=== PATIENT | male | born 1955 | race Caucasian/White ===

== ENCOUNTER → 2019-04-01 | Day surgery (SDC) | payer OTHER ==
[2019-03-29 16:15] LABS: BASOPHILS # (AUTO) 0.1 (0.0-0.1); EOSINOPHILS # (AUTO) 0.8 (0.0-0.4); EOSINOPHILS % 8.4 % (0.0-6.0); HEMATOCRIT 40.6 % (38.2-49.6); HEMOGLOBIN 13.7 g/dL (14.0-18.0); LYMPHOCYTES # (AUTO) 1.7 (1.0-3.2); LYMPHOCYTES % 17.1 % (18.0-39.1); MEAN CORPUSCULAR HEMOGLOBIN 30.4 pg (28-32); MEAN CORPUSCULAR HGB CONC 33.7 g/dL (31-35); MONOCYTES # (AUTO) 0.6 (0.2-0.8); MONOCYTES % 6.5 % (4.4-11.3); NEUTROPHILS # (AUTO) 6.5 (2.1-6.9); NEUTROPHILS % 66.3 % (38.7-80.0); PLATELET COUNT 184 x10e3/uL (140-360); RED BLOOD COUNT 4.51 x10e6/uL (4.3-5.7); RED CELL DISTRIBUTION WIDTH 12.1 % (11.7-14.4)
[2019-03-29 16:26] LABS: INR 1.12; PROTHROMBIN TIME 14.9 seconds (11.9-14.5)
[2019-03-29 16:28] LABS: PARTIAL THROMBOPLASTIN TIME 60.9 seconds (23.8-35.5)
--- NOTE | 2019-03-29 16:28 | Diagnostic Imaging Report ---
Chest, PA and lateral. History: Preoperative evaluation for foot surgery. Comparison: None available. Discussion: The heart is within normal limits of size. Patient is status post median sternotomy. The mediastinal and hilar contours are unremarkable. No focal consolidation, sizable pleural effusion, or pneumothorax. No acute osseous abnormalities. IMPRESSION: No radiographic evidence of acute cardiopulmonary abnormality. Signed by: Vini Anderson MD on 03/29/2019 4:25 PM
[2019-03-29 16:34] LABS: ANION GAP 15.3 mmol/L (8-16); CALCIUM 9.2 mg/dL (8.4-10.2); CREATININE, SERUM 2.36 mg/dL (0.72-1.25); POTASSIUM 4.3 mmol/L (3.5-5.1)
[~2019-04-01] MED LIST: BUPIVACAINE HCL 0.5% INJ 30 ML VIAL INJ ONE; CARVEDILOL12.5 MG PO; CEFAZOLIN SOD 1 GM/NS 50ML 50 ML IV ONE; DEXAMETHASONE SOD PHOS INJ 4 MG/ML VIAL ONE; DILTIAZEM PO; FENTANYL CITRATE/PF 100MCG/2 ML INJ ONE; HUMALOG100 UNIT/1 SC; INSULIN REGULAR, HUMAN 100 UNIT/1 ML 3ML VIAL ONE; INTEGRA PLUS C1 EACH PO; LANTUS 3ML100 UNITS/ SC; MIDAZOLAM HCL 2 MG/2 ML VIAL ONE; VELTASSA8.4 GM PEG; VITAMIN D PO; Z.0.ASPIRIN CHEW81 M; Z.0.COLACE100 MG; Z.0.CRESTOR20 MG PO; Z.0.FLOMAX0.4 MG; Z.0.KLOR-CON M2020 M PO; Z.0.LASIX40 MG PO; Z.0.PANTOPRAZOLE SO4 PO; Z.0.PRADAXA150 MG PO; Z.0.SOTALOL80 MG PO; [UNRECOGNIZED DRUG - OTHER] PO; [UNRECOGNIZED DRUG - OTHER] PO
--- OUTSIDE RECORDS SUMMARY | 2019-04-01 05:38 | XMS REPORT ---
Author Author [facility] Address Unknown Phone Unavailable Care Team Providers Care Rn Labor Delivery Name Role Phone Ramona SALDIVAR Unavailable Unavailable Problems This patient has no known problems. Allergies, Adverse Reactions, Alerts This patient has no known allergies or adverse reactions. Medications This patient has no known medications. Results Test Description Test Time Test Comments Text Results Atomic Results Result Comments CHEST 2 VIEWS 2019-03-29 16:24:00 [facility] [address] [address] Patient Name: TANNA BEE MR #: [id number] : 1955 Age/Sex: 63/M Req #: [id number] Adm Physician: Ordered by: JATINDER SALDIVAR DPM Report #: [id number] Location: OR Room/Bed: Procedure: [id number] DX/CHEST 2 VIEWS Exam Date: Exam Time: REPORT STATUS: Signed Chest, PA and lateral. History: Preoperative evaluation for foot surgery. Comparison: None available. Discussion: The heart is within normal limits of size. Patient is status post median sternotomy. The mediastinal and hilar contours are unremarkable. No focal consolidation, sizable pleural effusion, or pneumothorax. No acute osseous abnormalities. IMPRESSION: No radiographic evidence of acute cardiopulmonary abnormality. Signed by: Vini Hooker MD on 03/29/2019 4:25 PM Dictated By: VINI HOOKER MD 24 Transcribed By: ALLEGRA on 03/29/191624 COPY TO: JATINDER SALDIVAR DPM
[2019-04-01 07:45] VITALS: BP 132/66
--- NOTE | 2019-04-01 11:24 | Operative Report ---
DATE OF PROCEDURE: 04/01/2019 SURGEON: Allyssa Barreto DPM PREOPERATIVE DIAGNOSIS: Right 2nd digit amputation. POSTOPERATIVE DIAGNOSIS: Right 2nd digit amputation. PLANNED PROCEDURE: Right partial 2nd digit amputation. AUTOMOTIVE METALSMITH: None. ANESTHESIA: General with a postoperative block consisting of 6 mL of 0.5% Marcaine plain. ESTIMATED BLOOD LOSS: Less than 10 mL. PATHOLOGY: Middle and distal phalanx of the right 2nd digit for gross specimen, wound culture. MATERIALS: 4-0 Prolene. PROCEDURE NOTE: The patient was seen in the preoperative waiting room, where the correct procedure and site was identified. The patient was brought to the operating room and placed on the operating table in the supine position. General anesthesia was initiated. At this time, a well-padded pneumatic tourniquet was placed about the patient's right ankle; however, it was never inflated. The right foot and ankle were scrubbed, prepped and draped in the usual aseptic manner. Attention was directed to the distal aspect of the patient's right 2nd digit where a deep probing ulceration with purulent drainage was noted to the distal tip of the patient's right 2nd digit. Utilizing a fishmouth incision at the level of proximal phalangeal joint with #15 blade, the case was started. Incision was carried down directly to the level of bone. The incision was carried down to the level of proximal interphalangeal joint where the distal tip of the digit was grasped distally and disarticulated at the level of the proximal interphalangeal joint. Next, utilizing a double-action bone cutter, the head of the proximal phalanx was resected and passed off to the back table. The wound was then copiously irrigated with sterile saline. Next, the wound was prepped for closure by removing all dog-ears and debulking fat. Utilizing 4-0 Prolene simple interrupted sutures, the wound edges were reapproximated. The incision site was then dressed with Adaptic, 4x4s, Kerlix, Terence wrap, and a postop shoe. The patient tolerated the procedure and anesthesia well. The patient was transferred to the postoperative recovery room with vital signs stable and vascular status intact. The patient was monitored there for a short period of time before being sent home with the following written and oral instructions: 1. Keep the dressing clean, dry, and intact. 2. The patient is to remain partial heel touch weightbearing to the right lower extremity to avoid any ambulation until being seen in the office. 3. The patient was given the office number and instructed to contact us if any problems arise. DAYLIN Pretty/CASSANDRA /[id number]
== END | disposition home or self-care (01) ==
LOC: OR 05:35
PROVIDERS: ATTEND Podiatrist Foot & Ankle Surgery
DX: M86.071 Acute hematogenous osteomyelitis, right ankle and foot (principal); Z01.810 Encounter for preprocedural cardiovascular examination; Z01.812 Encounter for preprocedural laboratory examination; Z01.811 Encounter for preprocedural respiratory examination; E11.9 Type 2 diabetes mellitus without complications; I10 Essential (primary) hypertension; I25.10 Atherosclerotic heart disease of native coronary artery without angina pectoris; Z95.1 Presence of aortocoronary bypass graft; I48.91 Unspecified atrial fibrillation; N18.9 Chronic kidney disease, unspecified
CPT/HCPCS: 28820; 36415 ×2; 71046; 80048; 82948; 85025; 85610; 85730; 88305; 88311; 93005; J0690; J1817; J2250; J3010; 88304; J1100

== ENCOUNTER 2021-04-18 11:47 | Inpatient (IN) | payer MEDICARE, OTHER ==
[~2021-04-18] VITALS: Ht 182.9 cm; Wt 99.8 kg
[~2021-04-18 11:47] MED LIST changes: -BUPIVACAINE HCL 0.5% INJ 30 ML VIAL INJ ONE; -CEFAZOLIN SOD 1 GM/NS 50ML 50 ML IV ONE; -DEXAMETHASONE SOD PHOS INJ 4 MG/ML VIAL ONE; -FENTANYL CITRATE/PF 100MCG/2 ML INJ ONE; -INSULIN REGULAR, HUMAN 100 UNIT/1 ML 3ML VIAL ONE; -MIDAZOLAM HCL 2 MG/2 ML VIAL ONE
[2021-04-18] MEDS ORDERED: Vancomycin IV 1 GM in SODIUM CHLORIDE 0.9% 250ML 250 ML IV ONE (12:30)
[2021-04-18 12:52] LABS: BASOPHILS % 0.4 % (0.0-1.0); EOSINOPHILS # (AUTO) 0.2 (0.0-0.4); HEMOGLOBIN 11.7 g/dL (14.0-18.0); LYMPHOCYTES # (AUTO) 0.8 (1.0-3.2); LYMPHOCYTES % 7.5 % (18.0-39.1); MEAN CORPUSCULAR HEMOGLOBIN 29.4 pg (28-32); MEAN CORPUSCULAR HGB CONC 31.6 g/dL (31-35); MONOCYTES # (AUTO) 0.8 (0.2-0.8); MONOCYTES % 7.4 % (4.4-11.3); NEUTROPHILS # (AUTO) 9.3 (2.1-6.9); NEUTROPHILS % 82.3 % (38.7-80.0); PLATELET COUNT 161 x10e3/uL (140-360); RED BLOOD COUNT 3.98 x10e6/uL (4.3-5.7); RED CELL DISTRIBUTION WIDTH 12.5 % (11.7-14.4)
[2021-04-18 13:12] LABS: ALBUMIN 3.4 g/dL (3.5-5.0); ANION GAP 13.7 mmol/L (8-16); CALCIUM 8.6 mg/dL (8.4-10.2); CREATININE, SERUM 2.9 mg/dL (0.72-1.25); POTASSIUM 4.7 mmol/L (3.5-5.1)
[2021-04-18] MEDS ORDERED: ACETAMINOPHEN 325 MG TAB PO PRN (14:15)
[2021-04-18] MEDS ORDERED: DOCUSATE SODIUM 100 MG CAP PO PRN (14:15)
[2021-04-18] MEDS ORDERED: ALBUTEROL/IPRATROPIUM 3 ML NEB NEB PRN (14:15)
[2021-04-18] MEDS ORDERED: HYDROCODONE/APAP 5MG-325MG TAB PO PRN (14:15)
[2021-04-18] MEDS ORDERED: BENZONATATE 100 MG CAP PO PRN (14:15)
[2021-04-18] MEDS ORDERED: SIMETHICONE 80 MG CHEW PO PRN (14:15)
[2021-04-18] MEDS ORDERED: DIPHENHYDRAMINE HCL 25 MG CAP PO PRN (14:15)
[2021-04-18] MEDS ORDERED: HYDRALAZINE HCL 20 MG/ML VIAL IV PRN (14:15)
[2021-04-18] MEDS ORDERED: LIDOCAINE 4% PATCH TP PRN (14:15)
[2021-04-18] MEDS ORDERED: POTASSIUM CHLORIDE 20 MEQ TAB CR PO PRN (14:15)
[2021-04-18] MEDS ORDERED: DEXTROSE 50% SYRINGE 50 ML IV PRN ×3 (14:15→15:00)
[2021-04-18] MEDS ORDERED: ELIQUIS2.5 MG PO (14:58)
[2021-04-18] MEDS ORDERED: JARDIANCE25 MG (14:58)
[2021-04-18] MEDS ORDERED: LANTUS 3ML100 UNITS/ SQ (14:59)
[2021-04-18 15:05] VITALS: BP 142/106
[2021-04-18 15:06] VITALS: BP 142/106
[2021-04-18] MEDS: INSULIN LISPRO 100 UNIT/1 ML 3ML VIAL SQ SCH ×2 (15:18→21:00)
[2021-04-18] MEDS: SODIUM CHLORIDE 0.9% 1000ML 1,000 ML IV SCH (15:24)
[2021-04-18] MEDS: Vancomycin IV 1 GM in SODIUM CHLORIDE 0.9% 250ML 250 ML IV SCH (16:41)
[2021-04-18] MEDS: ENOXAPARIN SOD INJ 40 MG/0.4 ML SYR SC SCH (16:41)
[2021-04-18 17:51] VITALS: BP 142/56
[2021-04-18 20:46] VITALS: BP 141/75
[2021-04-18] MEDS ORDERED: MELATONIN 5 MG TABLET PO PRN (21:00)
[2021-04-18 21:30] VITALS: BP 141/75
[2021-04-19] VITALS (8 sets, daily range): BP systolic 137–153; BP diastolic 58–88
[2021-04-19] MEDS: SODIUM CHLORIDE 0.9% 1000ML 1,000 ML IV SCH ×3 (02:02→21:20)
[2021-04-19] MEDS: INSULIN LISPRO 100 UNIT/1 ML 3ML VIAL SQ SCH ×4 (07:30→21:20)
[2021-04-19 07:35] LABS: BASOPHILS # (AUTO) 0.1 (0.0-0.1); BASOPHILS % 0.7 % (0.0-1.0); EOSINOPHILS # (AUTO) 0.3 (0.0-0.4); EOSINOPHILS % 3.1 % (0.0-6.0); HEMATOCRIT 35.3 % (38.2-49.6); HEMOGLOBIN 11.6 g/dL (14.0-18.0); LYMPHOCYTES # (AUTO) 0.9 (1.0-3.2); LYMPHOCYTES % 10.5 % (18.0-39.1); MEAN CORPUSCULAR HEMOGLOBIN 30.1 pg (28-32); MEAN CORPUSCULAR HGB CONC 32.9 g/dL (31-35); MEAN CORPUSCULAR VOLUME 91.5 fL (81-99); MONOCYTES # (AUTO) 0.8 (0.2-0.8); MONOCYTES % 9.3 % (4.4-11.3); NEUTROPHILS # (AUTO) 6.8 (2.1-6.9); NEUTROPHILS % 75.7 % (38.7-80.0); PLATELET COUNT 175 x10e3/uL (140-360); RED BLOOD COUNT 3.86 x10e6/uL (4.3-5.7); RED CELL DISTRIBUTION WIDTH 12.4 % (11.7-14.4)
[2021-04-19 07:53] LABS: ANION GAP 15.1 mmol/L (8-16); CALCIUM 8.3 mg/dL (8.4-10.2); CHOL/HDL RATIO 3.1 (3.9-4.7); CREATININE, SERUM 2.33 mg/dL (0.72-1.25); PHOSPHORUS 3.3 MG/DL (2.3-4.7); POTASSIUM 5.1 mmol/L (3.5-5.1)
[2021-04-19] MEDS: Vancomycin IV 1 GM in SODIUM CHLORIDE 0.9% 250ML 250 ML IV SCH (08:10)
[2021-04-19] MEDS: PANTOPRAZOLE SOD 40 MG TABEC PO SCH (08:10)
[2021-04-19 08:16] LABS: THYROID STIMULATING HORMONE 0.782 uIU/mL (0.350-4.940)
[2021-04-19] MEDS ORDERED: Vancomycin IV 1 GM in SODIUM CHLORIDE 0.9% 250ML 250 ML IV SCH (09:00)
[2021-04-19] MEDS ORDERED: CEFTRIAXONE 1 GM in SODIUM CHLORIDE 0.9% 50ML 50 ML IV SCH (09:00)
[2021-04-19] MEDS: ASPIRIN 81 MG ENTERIC COATED PO SCH (11:20)
[2021-04-19] MEDS: CEFTRIAXONE 1 GM in SODIUM CHLORIDE 0.9% 50ML 50 ML IV SCH (13:00)
[2021-04-19] MEDS: ONDANSETRON HCL INJ 2MG/ML 2ML 2 MG/ML VIAL IV PRN (16:30)
[2021-04-19] MEDS: CARVEDILOL 12.5 MG TAB PO SCH (17:00)
[2021-04-19] MEDS: ENOXAPARIN SOD INJ 40 MG/0.4 ML SYR SC SCH (18:36)
[2021-04-19] MEDS: CRESTOR 10MG PO SCH (21:18)
[2021-04-20] VITALS (7 sets, daily range): BP systolic 125–162; BP diastolic 51–69
[2021-04-20 05:05] LABS: BASOPHILS % 0.5 % (0.0-1.0); EOSINOPHILS # (AUTO) 0.3 (0.0-0.4); EOSINOPHILS % 3.7 % (0.0-6.0); HEMATOCRIT 34.1 % (38.2-49.6); HEMOGLOBIN 10.8 g/dL (14.0-18.0); LYMPHOCYTES # (AUTO) 1.2 (1.0-3.2); LYMPHOCYTES % 14.9 % (18.0-39.1); MEAN CORPUSCULAR HEMOGLOBIN 29.5 pg (28-32); MEAN CORPUSCULAR HGB CONC 31.7 g/dL (31-35); MEAN CORPUSCULAR VOLUME 93.2 fL (81-99); MONOCYTES # (AUTO) 0.8 (0.2-0.8); NEUTROPHILS # (AUTO) 5.7 (2.1-6.9); NEUTROPHILS % 70.4 % (38.7-80.0); PLATELET COUNT 156 x10e3/uL (140-360); RED BLOOD COUNT 3.66 x10e6/uL (4.3-5.7); RED CELL DISTRIBUTION WIDTH 12.4 % (11.7-14.4)
[2021-04-20 05:26] LABS: ALBUMIN 2.9 g/dL (3.5-5.0); ANION GAP 14.6 mmol/L (8-16); CALCIUM 8.1 mg/dL (8.4-10.2); CREATININE, SERUM 2.28 mg/dL (0.72-1.25); POTASSIUM 4.6 mmol/L (3.5-5.1)
[2021-04-20] MEDS: SODIUM CHLORIDE 0.9% 1000ML 1,000 ML IV SCH ×3 (06:36→21:00)
[2021-04-20] MEDS: INSULIN LISPRO 100 UNIT/1 ML 3ML VIAL SQ SCH ×4 (07:30→21:21)
[2021-04-20] MEDS: PANTOPRAZOLE SOD 40 MG TABEC PO SCH (09:09)
[2021-04-20] MEDS: ASPIRIN 81 MG ENTERIC COATED PO SCH (09:09)
[2021-04-20] MEDS: Vancomycin IV 1 GM in SODIUM CHLORIDE 0.9% 250ML 250 ML IV SCH (09:09)
[2021-04-20] MEDS: CARVEDILOL 12.5 MG TAB PO SCH ×2 (09:10→16:39)
[2021-04-20] MEDS: ONDANSETRON HCL INJ 2MG/ML 2ML 2 MG/ML VIAL IV PRN (09:26)
[2021-04-20] MEDS: CEFTRIAXONE 1 GM in SODIUM CHLORIDE 0.9% 50ML 50 ML IV SCH (13:19)
[2021-04-20] MEDS: ENOXAPARIN SOD INJ 40 MG/0.4 ML SYR SC SCH (16:39)
[2021-04-20] MEDS: CRESTOR 10MG PO SCH (21:20)
[2021-04-21] VITALS (9 sets, daily range): BP systolic 121–155; BP diastolic 56–80
[2021-04-21] MEDS: SODIUM CHLORIDE 0.9% 1000ML 1,000 ML IV SCH ×3 (04:54→23:15)
[2021-04-21 06:13] LABS: BASOPHILS % 0.5 % (0.0-1.0); EOSINOPHILS # (AUTO) 0.3 (0.0-0.4); HEMATOCRIT 34.4 % (38.2-49.6); HEMOGLOBIN 10.7 g/dL (14.0-18.0); LYMPHOCYTES # (AUTO) 1.2 (1.0-3.2); LYMPHOCYTES % 15.2 % (18.0-39.1); MEAN CORPUSCULAR HEMOGLOBIN 29.6 pg (28-32); MEAN CORPUSCULAR HGB CONC 31.1 g/dL (31-35); MONOCYTES # (AUTO) 0.7 (0.2-0.8); MONOCYTES % 8.8 % (4.4-11.3); NEUTROPHILS # (AUTO) 5.5 (2.1-6.9); NEUTROPHILS % 70.7 % (38.7-80.0); PLATELET COUNT 177 x10e3/uL (140-360); RED BLOOD COUNT 3.62 x10e6/uL (4.3-5.7); RED CELL DISTRIBUTION WIDTH 12.4 % (11.7-14.4)
[2021-04-21 06:34] LABS: ALBUMIN 2.8 g/dL (3.5-5.0); ALBUMIN/GLOBULIN RATIO 0.9 (0.8-2.0); ANION GAP 14.5 mmol/L (8-16); CALCIUM 8.6 mg/dL (8.4-10.2); CREATININE, SERUM 2.28 mg/dL (0.72-1.25); POTASSIUM 4.5 mmol/L (3.5-5.1)
[2021-04-21] MEDS: INSULIN LISPRO 100 UNIT/1 ML 3ML VIAL SQ SCH ×4 (07:30→21:47)
[2021-04-21] MEDS: PANTOPRAZOLE SOD 40 MG TABEC PO SCH (08:55)
[2021-04-21] MEDS: ASPIRIN 81 MG ENTERIC COATED PO SCH (08:55)
[2021-04-21] MEDS: CARVEDILOL 12.5 MG TAB PO SCH ×2 (08:56→17:09)
[2021-04-21] MEDS: Vancomycin IV 1 GM in SODIUM CHLORIDE 0.9% 250ML 250 ML IV SCH (08:56)
[2021-04-21] MEDS: ENOXAPARIN SOD INJ 40 MG/0.4 ML SYR SC SCH (17:09)
[2021-04-21] MEDS: CRESTOR 10MG PO SCH (20:41)
[2021-04-22] VITALS (7 sets, daily range): BP systolic 136–166; BP diastolic 62–93
[2021-04-22] MEDS: SODIUM CHLORIDE 0.9% 1000ML 1,000 ML IV SCH ×2 (03:28→19:15)
[2021-04-22 05:44] LABS: BASOPHILS # (AUTO) 0.1 (0.0-0.1); BASOPHILS % 0.7 % (0.0-1.0); EOSINOPHILS # (AUTO) 0.4 (0.0-0.4); EOSINOPHILS % 4.4 % (0.0-6.0); HEMATOCRIT 33.9 % (38.2-49.6); HEMOGLOBIN 11.1 g/dL (14.0-18.0); LYMPHOCYTES # (AUTO) 1.3 (1.0-3.2); LYMPHOCYTES % 14.6 % (18.0-39.1); MEAN CORPUSCULAR HEMOGLOBIN 29.5 pg (28-32); MEAN CORPUSCULAR HGB CONC 32.7 g/dL (31-35); MEAN CORPUSCULAR VOLUME 90.2 fL (81-99); MONOCYTES # (AUTO) 0.8 (0.2-0.8); MONOCYTES % 8.6 % (4.4-11.3); NEUTROPHILS # (AUTO) 6.3 (2.1-6.9); NEUTROPHILS % 70.7 % (38.7-80.0); PLATELET COUNT 199 x10e3/uL (140-360); RED BLOOD COUNT 3.76 x10e6/uL (4.3-5.7); RED CELL DISTRIBUTION WIDTH 12.1 % (11.7-14.4)
[2021-04-22 06:20] LABS: ANION GAP 12.3 mmol/L (8-16); CALCIUM 8.7 mg/dL (8.4-10.2); CREATININE, SERUM 1.82 mg/dL (0.72-1.25); POTASSIUM 4.3 mmol/L (3.5-5.1)
[2021-04-22] MEDS: PANTOPRAZOLE SOD 40 MG TABEC PO SCH (07:30)
[2021-04-22] MEDS: INSULIN LISPRO 100 UNIT/1 ML 3ML VIAL SQ SCH ×4 (07:30→21:05)
[2021-04-22] MEDS: CARVEDILOL 12.5 MG TAB PO SCH ×2 (09:00→17:38)
[2021-04-22] MEDS: ASPIRIN 81 MG ENTERIC COATED PO SCH (09:00)
[2021-04-22] MEDS: Vancomycin IV 1.25 GM in SODIUM CHLORIDE 0.9% 250ML 250 ML IV SCH (09:12)
[2021-04-22] MEDS ORDERED: BENZOCAINE 20% SPR 60 ML CAN ONE (12:05)
[2021-04-22] MEDS ORDERED: SODIUM CHLORIDE 0.9% 1000ML 1,000 ML ONE (12:05)
[2021-04-22] MEDS ORDERED: PROPOFOL IV EMULSION 10 MG/ML 20 ML VIAL ONE (12:16)
[2021-04-22] MEDS ORDERED: POVIDONE IODINE 0.05% 0.05 % ML PO ONE (12:16)
[2021-04-22] MEDS ORDERED: MIDAZOLAM HCL 2 MG/2 ML VIAL ONE (13:22)
[2021-04-22] MEDS: ENOXAPARIN SOD INJ 40 MG/0.4 ML SYR SC SCH (17:38)
[2021-04-22] MEDS: CRESTOR 10MG PO SCH (20:54)
[2021-04-23] VITALS (8 sets, daily range): BP systolic 148–167; BP diastolic 63–95
[2021-04-23] MEDS: SODIUM CHLORIDE 0.9% 1000ML 1,000 ML IV SCH (01:00)
[2021-04-23] MEDS: INSULIN LISPRO 100 UNIT/1 ML 3ML VIAL SQ SCH ×4 (07:30→20:33)
[2021-04-23] MEDS: ASPIRIN 81 MG ENTERIC COATED PO SCH (08:48)
[2021-04-23] MEDS: PANTOPRAZOLE SOD 40 MG TABEC PO SCH (08:48)
[2021-04-23] MEDS: CARVEDILOL 12.5 MG TAB PO SCH ×2 (08:49→16:52)
[2021-04-23] MEDS: Vancomycin IV 1.25 GM in SODIUM CHLORIDE 0.9% 250ML 250 ML IV SCH (08:54)
[2021-04-23] MEDS: ENOXAPARIN SOD INJ 40 MG/0.4 ML SYR SC SCH (16:52)
[2021-04-23] MEDS: CRESTOR 10MG PO SCH (20:32)
[2021-04-24] VITALS (9 sets, daily range): BP systolic 131–175; BP diastolic 66–83
[2021-04-24 06:20] LABS: BASOPHILS # (AUTO) 0.1 (0.0-0.1); BASOPHILS % 0.8 % (0.0-1.0); EOSINOPHILS # (AUTO) 0.4 (0.0-0.4); EOSINOPHILS % 4.9 % (0.0-6.0); HEMATOCRIT 34.9 % (38.2-49.6); HEMOGLOBIN 11.3 g/dL (14.0-18.0); LYMPHOCYTES # (AUTO) 1.1 (1.0-3.2); LYMPHOCYTES % 13.7 % (18.0-39.1); MEAN CORPUSCULAR HEMOGLOBIN 29.2 pg (28-32); MEAN CORPUSCULAR HGB CONC 32.4 g/dL (31-35); MEAN CORPUSCULAR VOLUME 90.2 fL (81-99); MONOCYTES # (AUTO) 0.7 (0.2-0.8); MONOCYTES % 8.2 % (4.4-11.3); NEUTROPHILS # (AUTO) 5.7 (2.1-6.9); NEUTROPHILS % 71.3 % (38.7-80.0); PLATELET COUNT 204 x10e3/uL (140-360); RED BLOOD COUNT 3.87 x10e6/uL (4.3-5.7); RED CELL DISTRIBUTION WIDTH 12.2 % (11.7-14.4)
[2021-04-24 06:47] LABS: ANION GAP 16.4 mmol/L (8-16); CALCIUM 8.6 mg/dL (8.4-10.2); CREATININE, SERUM 1.55 mg/dL (0.72-1.25); POTASSIUM 4.4 mmol/L (3.5-5.1)
[2021-04-24] MEDS: ASPIRIN 81 MG ENTERIC COATED PO SCH (08:30)
[2021-04-24] MEDS: PANTOPRAZOLE SOD 40 MG TABEC PO SCH (08:30)
[2021-04-24] MEDS: INSULIN LISPRO 100 UNIT/1 ML 3ML VIAL SQ SCH ×4 (08:31→21:30)
[2021-04-24] MEDS: Vancomycin IV 1.25 GM in SODIUM CHLORIDE 0.9% 250ML 250 ML IV SCH (08:32)
[2021-04-24] MEDS: CARVEDILOL 12.5 MG TAB PO SCH ×2 (08:41→17:05)
[2021-04-24] MEDS: NIFEDIPINE CR 30 MG TAB PO SCH (14:41)
[2021-04-24] MEDS: ENOXAPARIN SOD INJ 40 MG/0.4 ML SYR SC SCH (17:05)
[2021-04-24] MEDS: CRESTOR 10MG PO SCH (21:28)
[2021-04-25 00:34] VITALS: BP 122/57
[2021-04-25 04:23] VITALS: BP 128/63
[2021-04-25] MEDS: INSULIN LISPRO 100 UNIT/1 ML 3ML VIAL SQ SCH ×4 (08:00→21:00)
[2021-04-25 08:24] VITALS: BP 149/66
[2021-04-25] MEDS: ASPIRIN 81 MG ENTERIC COATED PO SCH (09:44)
[2021-04-25] MEDS: CARVEDILOL 12.5 MG TAB PO SCH ×2 (09:44→16:43)
[2021-04-25] MEDS: PANTOPRAZOLE SOD 40 MG TABEC PO SCH (09:44)
[2021-04-25] MEDS: NIFEDIPINE CR 30 MG TAB PO SCH (09:45)
[2021-04-25] MEDS: DAPTOMYCIN 500mg 10ML 500 MG in SODIUM CHLORIDE 0.9% 100 ML IV SCH (12:55)
[2021-04-25 14:43] LABS: ANION GAP 12.6 mmol/L (8-16); CALCIUM 8.9 mg/dL (8.4-10.2); CREATININE, SERUM 1.84 mg/dL (0.72-1.25); POTASSIUM 4.6 mmol/L (3.5-5.1)
[2021-04-25 20:00] VITALS: BP 144/84
[2021-04-25] MEDS: CRESTOR 10MG PO SCH (21:03)
[2021-04-26] VITALS: BP 137/69
[2021-04-26 04:00] VITALS: BP 146/66
[2021-04-26 06:57] LABS: ANION GAP 15.3 mmol/L (8-16); CALCIUM 8.8 mg/dL (8.4-10.2); CREATININE, SERUM 1.84 mg/dL (0.72-1.25); POTASSIUM 4.3 mmol/L (3.5-5.1)
[2021-04-26] MEDS: INSULIN LISPRO 100 UNIT/1 ML 3ML VIAL SQ SCH ×3 (07:30→16:30)
[2021-04-26] MEDS: PANTOPRAZOLE SOD 40 MG TABEC PO SCH (08:00)
[2021-04-26 08:08] VITALS: BP 152/79
[2021-04-26 08:13] VITALS: BP 152/79
[2021-04-26] MEDS ORDERED: ONDANSETRON HCL 4 MG ORAL DISINTEGRATING TAB PO PRN (08:30)
[2021-04-26] MEDS: CARVEDILOL 12.5 MG TAB PO SCH (09:03)
[2021-04-26] MEDS: ASPIRIN 81 MG ENTERIC COATED PO SCH (09:03)
[2021-04-26] MEDS: NIFEDIPINE CR 30 MG TAB PO SCH (09:04)
[2021-04-26] MEDS: DAPTOMYCIN 500mg 10ML 500 MG in SODIUM CHLORIDE 0.9% 100 ML IV SCH (10:00)
[2021-04-26 11:40] LABS: INR 0.92; PROTHROMBIN TIME 13.1 seconds (11.9-14.5)
[2021-04-26 12:21] VITALS: BP 164/77
[2021-04-26] MEDS ORDERED: FENTANYL CITRATE/PF 100MCG/2 ML INJ ONE (13:57)
[2021-04-26] MEDS ORDERED: LIDOCAINE HCL 1% LOCAL INJ 20 ML VIAL ONE (13:58)
[2021-04-26] MEDS ORDERED: MIDAZOLAM HCL 2 MG/2 ML VIAL ONE (13:58)
== END 2021-04-26 18:20 | disposition home or self-care (01) | DRG 638 ==
LOC: ER 11:58 → ERHOLD 12:28 → MED/SURG3 14:24
PROVIDERS: ADMIT Internal Medicine; ATTEND Internal Medicine
PROC: 02HV33Z Insertion of Infusion Device into Superior Vena Cava, Percutaneous Approach (ICD-10-PCS; 2021-04-22)
PROC: B24BZZ4 Ultrasonography of Heart with Aorta, Transesophageal (ICD-10-PCS; 2021-04-22)
PROC: 0JH63XZ Insertion of Tunneled Vascular Access Device into Chest Subcutaneous Tissue and Fascia, Percutaneous Approach (ICD-10-PCS; principal; 2021-04-26)
PROC: 02HV33Z Insertion of Infusion Device into Superior Vena Cava, Percutaneous Approach (ICD-10-PCS; 2021-04-26)
PROC: B5181ZA Fluoroscopy of Superior Vena Cava using Low Osmolar Contrast, Guidance (ICD-10-PCS; 2021-04-26)
DX: E11.628 Type 2 diabetes mellitus with other skin complications (principal); L03.115 Cellulitis of right lower limb; I16.1 Hypertensive emergency; R78.81 Bacteremia; N40.0 Benign prostatic hyperplasia without lower urinary tract symptoms; Z20.822 Contact with and (suspected) exposure to COVID-19; S91.331A Puncture wound without foreign body, right foot, initial encounter; L08.9 Local infection of the skin and subcutaneous tissue, unspecified; E78.5 Hyperlipidemia, unspecified; E11.42 Type 2 diabetes mellitus with diabetic polyneuropathy; I25.10 Atherosclerotic heart disease of native coronary artery without angina pectoris; Z95.1 Presence of aortocoronary bypass graft; E11.22 Type 2 diabetes mellitus with diabetic chronic kidney disease; I12.9 Hypertensive chronic kidney disease with stage 1 through stage 4 chronic kidney disease, or unspecified chronic kidney disease; N18.32 Chronic kidney disease, stage 3b; Z83.3 Family history of diabetes mellitus; Z80.1 Family history of malignant neoplasm of trachea, bronchus and lung; Z81.2 Family history of tobacco abuse and dependence; Z84.89 Family history of other specified conditions; Z89.421 Acquired absence of other right toe(s); W45.0XXA Nail entering through skin, initial encounter; W22.8XXA Striking against or struck by other objects, initial encounter; B95.62 Methicillin resistant Staphylococcus aureus infection as the cause of diseases classified elsewhere; N17.9 Acute kidney failure, unspecified; Z79.4 Long term (current) use of insulin
CPT/HCPCS: 36415; 36558; 74470; 76937; 77001; 80048; 80053; 80061; 80202; 82948; 83036; 83735; 84100; 84443; 85025; 85610; 87040; 87071; 87186; 87205; 93005; 93306; 93307; 93312; 93325; 93925; 94799; 96361; 96372; 97139; 99284; J0360; J0696; J1650; J2001; J2250; J2405; J3010; J3370; J7030; J7050; U0002

== ENCOUNTER → 2021-06-08 | Outpatient (CLI) | payer MEDICARE ==
[~2021-06-08] MED LIST changes: +ELIQUIS2.5 MG PO; +JARDIANCE25 MG; +LANTUS 3ML100 UNITS/ SQ; +LIDOCAINE HCL 1% LOCAL INJ 20 ML VIAL ONE
== END ==
LOC: DX 10:26
PROVIDERS: ATTEND Internal Medicine Infectious Disease
DX: L03.115 Cellulitis of right lower limb (principal)
CPT/HCPCS: 36589; 71045; J2001